=== PATIENT | female | born 2000 | race Caucasian/White ===

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

== ENCOUNTER 2024-01-18 18:01 | Emergency (ER) | payer OTHER, SELFPAY ==
[2024-01-18 18:40] LABS: Bilirubin Negative (Negative); Blood, Urine Trace (Negative); Glucose, Urine (Dipstick) Negative (Negative); Ketone, Urine Negative (Negative); Leukocyte Trace (Negative); Nitrite Negative (Negative); Protein, Urine (Dipstick) Negative (Neg-Trace); Urobilinogen 0.2 mg/dL (Less than 2)
[2024-01-18 18:42] LABS: Pregnancy Test - Urine (BHCG) Negative (Negative); Pregu Control Background? CLEAR/WHITE (CLR/WHITE); Pregu Control Bar Appear? YES (CONTROL BAR)
[2024-01-18 18:45] LABS: Clarity Hazy (Clear)
[2024-01-18 18:46] LABS: Bacteria/HPF 3+ HPF (None Seen); CAUTI Indications for Culture Pelvic or flank pain; RBC/HPF 0-3 HPF (0-3); Urine Culture Reflex No No
[2024-01-21 06:56] LABS: Chlam.trachomatis by PCR,Urine Not Detected (NotDetected); GC N.gonorrhoeae PCR,UrineVOID Not Detected (NotDetected)
[2024-01-21 10:37] LABS: HSV-1 IgG Type Specific <0.91 index (0.00-0.90); HSV-2 IgG Type Specific Less than 0.91 index (0.00-0.90)
== END 2024-01-18 19:48 | disposition home or self-care (01) ==
LOC: MADERS 18:01
DX: A60.04 Herpesviral vulvovaginitis (principal)
CPT/HCPCS: 36415; 81001; 81025; 86695; 86696; 87086; 87491; 87591; 99283